=== PATIENT | female | born 1970 | race Two or more races ===

== ENCOUNTER 2021-02-20 16:34 | Emergency (ER) | payer BC, MEDICAID ==
[~2021-02-20] VITALS: Ht 154.9 cm; Wt 95.7 kg
[2021-02-20 16:41] VITALS: BP 157/76
[2021-02-20] MEDS ORDERED: KETOROLAC 30 MG/ML VIAL IM ONE (17:45)
[2021-02-20] MEDS ORDERED: ONDANSETRON 4 MG ODT PO ONE (17:45)
[2021-02-20] MEDS ORDERED: HYDROcodone/APAP 7.5/325 MG 1 TAB PO ONE (17:45)
[2021-02-20] MEDS ORDERED: PRED20TA5 PO (18:44)
[2021-02-20] MEDS ORDERED: ACET-8386 PO (18:44)
[2021-02-20] MEDS ORDERED: LID5T TP (18:44)
[2021-02-20] MEDS ORDERED: IBUP-2213 PO (18:44)
[2021-02-20 19:15] VITALS: BP 157/76
== END 2021-02-20 19:15 | disposition home or self-care (01) ==
LOC: MED 16:34
DX: S39.012A Strain of muscle, fascia and tendon of lower back, initial encounter (principal); R31.9 Hematuria, unspecified; I10 Essential (primary) hypertension; Z79.899 Other long term (current) drug therapy; X58.XXXA Exposure to other specified factors, initial encounter; Y93.89 Activity, other specified; Y92.89 Other specified places as the place of occurrence of the external cause; Y99.8 Other external cause status
CPT/HCPCS: 81002; 81025; 96372; 99283; J1885; Q0162

== ENCOUNTER 2021-04-21 16:47 | Emergency (ER) | payer SELFPAY ==
[~2021-04-21] VITALS: Ht 154.9 cm; Wt 95.3 kg
[~2021-04-21 16:47] MED LIST: ACET-8386 PO; IBUP-2213 PO; LID5T TP; PRED20TA5 PO
[2021-04-21 17:04] VITALS: BP 125/89
--- NOTE | 2021-04-21 17:30 | NUR ---
50 YO BIBS C/O PLEURITIC CHEST PAIN, COUGH, 8/10 BODY ACHES X3 WEEKS. PT REPORTS CHEST PAIN BECAME STRONGER LAST NIGHT; NON RADIATING, PATIENT IS ACTIVELY COUGHING UPON ASSESSMENT;REPORTS PRODUCTIVE COUGH WITH GREEN SPUTUM, LUNG SOUNDS CLEAR THROUGHOUT, PATIENT HAS ABCESS TO LEFT BREAST; RED AND WARM TO TOUCH. DENIES FEVER, CHILLS, N/V/D. EKG DONE; SEE CHART. A&OX4; PLACED ON MONITOR. PMH: HTN, RHUEMATOID ARTHRITIS, FIBROMYALGIA. NKDA
--- NOTE | 2021-04-21 17:49 | NUR ---
ELIZ SAMPLE COLLECTED AND GIVEN TO [employer]ANCE [employer]MI[employer] AUDITOR.
[2021-04-21] MEDS ORDERED: ACET-10509 PO (18:19)
[2021-04-21] MEDS ORDERED: IBUP-2213 PO (18:19)
[2021-04-21 18:33] LABS: ALBUMIN 3.2 g/dL (3.4-5.0); ANION GAP 10.6 (8-16); CARBON DIOXIDE 29.3 mmol/L (21-32); CREATININE 0.8 mg/dL (0.6-1.3); POTASSIUM 3.9 mmol/L (3.5-5.1); TOTAL BILIRUBIN 0.3 mg/dL (0.0-1.0)
--- NOTE | 2021-04-21 19:20 | NUR ---
REPORT RECEIVED FROM GAUTAM OLEA FOR CONTINUATION OF PATIENT CARE. AT THIS TIME.
[2021-04-21] MEDS ORDERED: KETOROLAC 60 MG/2 ML VIAL IM ONE (19:25)
--- NOTE | 2021-04-21 19:40 | NUR ---
PATIENT LAYING IN BED LOCKED IN LOWEST POSITION, HOB ELEVATED. X2 SIDERAILS UP FOR PATIENT SAFETY. PATIENT REPORTS BODY ACHES 6/10 AND CHEST DISCOMFORT WHEN COUGHING. LUNG SOUNDS CLEAR THROUGHOUT. BREATHIGN EVEN AND UNLABORED. CONNECTED TO MONITOR W VSS. NAD NOTED, WILL CONTINUE TO MONITOR.
[2021-04-21 20:01] VITALS: BP 148/93
--- NOTE | 2021-04-21 20:01 | NUR ---
Patient discharged with v/s stable. Written and verbal after care instructions given and explained. Patient alert, oriented and verbalized understanding of instructions. Ambulatory with steady gait. All questions addressed prior to discharge. ID band removed. Patient advised to follow up with PMD. Rx of ACETAMINOPHEN, IBUPROFEN given. Patient educated on indication of medication including possible reaction and side effects. Opportunity to ask questions provided and answered.
== END 2021-04-21 20:01 | disposition home or self-care (01) ==
LOC: MED 16:47
DX: U07.1 COVID-19 (principal); R05 Cough; R07.9 Chest pain, unspecified; I10 Essential (primary) hypertension; Z79.899 Other long term (current) drug therapy
CPT/HCPCS: 36415; 71045; 80053; 83880; 84484; 87426; 93005; 99285; J1885; Q0092

== ENCOUNTER 2023-05-23 16:09 | Inpatient (IN) | payer MEDICAID ==
[~2023-05-23] VITALS: Ht 154.9 cm; Wt 69.9 kg
[~2023-05-23 16:09] MED LIST changes: +ACET-10509 PO; -ACET-8386 PO; +ACET-8905 PO
[2023-05-23 16:17] VITALS: BP 143/80; PULSE 107; RESP 22; TEMP 99.7; O2SAT 98
[2023-05-23] MEDS ORDERED: KETOROLAC 30 MG/ML VIAL IVP ONE (16:45)
[2023-05-23] MEDS ORDERED: NACL 0.9% 1,000 ML IV SCH (16:45)
[2023-05-23] MEDS ORDERED: ONDANSETRON 4 MG/2 ML VIAL IVP ONE (16:45)
[2023-05-23 17:42] LABS: BASOPHILS % (AUTO) 0.3 % (0.0-2.0); HEMATOCRIT 42.6 % (36-48); HEMOGLOBIN 14.5 g/dL (12.0-16.0); LYMPHOCYTES # (AUTO) 0.9 K/uL (2.5-16.5); MEAN CORPUSCULAR HEMOGLOBIN 31 pg (27-31); MEAN CORPUSCULAR HGB CONC 34 g/dL (33-37); MEAN CORPUSCULAR VOLUME 91.6 fL (80-94); MONOCYTES # (AUTO) 0.6 K/uL (0.8-1.0); MONOCYTES % (AUTO) 6.3 % (1.7-9.3); NEUTROPHILS # (AUTO) 8.4 K/uL (1.8-7.7); NEUTROPHILS % (AUTO) 84.4 % (42.2-75.2); PLATELET COUNT (AUTO) 231 K/uL (140-450); RED BLOOD CELL COUNT(AUTO) 4.65 MIL/uL (4.20-5.40); RED CELL DISTRIBUTION WIDTH 13.6 % (11.6-13.7)
[2023-05-23 17:47] LABS: BILIRUBIN,URINE NEGATIVE (NEGATIVE); BLOOD, URINE 3+ (NEGATIVE); COLOR,URINE YELLOW (YELLOW); LEUKOCYTE ESTERASE ,URINE 2+ (NEGATIVE); NITRITE, URINE POSITIVE (NEGATIVE); PROTEIN,URINE 2+ (NEGATIVE); UGLUCOSE NEGATIVE (NEGATIVE)
[2023-05-23 17:48] LABS: APPEARANCE,URINE CLOUDY (CLEAR)
[2023-05-23 17:58] LABS: BACTERIA,URINE 10-30 (MOD) /HPF (None Seen); SQUAMOUS EPITHELIAL CELL,UR 4-10 (MOD) /LPF (0-3 (FEW)); WBC,URINE 80-100 /HPF (0-5)
[2023-05-23 18:05] LABS: ALBUMIN 3.4 g/dL (3.4-5.0); ANION GAP 10.5 (8-16); CALCIUM 9.6 mg/dL (8.5-10.1); CARBON DIOXIDE 28.8 mmol/L (21-32); CREATININE 0.9 mg/dL (0.6-1.3); POTASSIUM 4.3 mmol/L (3.5-5.1); TOTAL PROTEIN, SERUM 8.8 g/dL (6.4-8.2)
[2023-05-23] MEDS ORDERED: cefTRIAXone 1,000 MG VIAL ONE (19:11)
[2023-05-23] MEDS ORDERED: MORPHINE SULFATE 4 MG/ML SYR IVP ONE (19:25)
[2023-05-23] MEDS ORDERED: MORPHINE SULFATE 4 MG/ML SYR IVP PRN (20:50)
[2023-05-23] MEDS ORDERED: ONDANSETRON 4 MG/2 ML VIAL IVP PRN (20:50)
[2023-05-23] MEDS ORDERED: KCL 20 MEQ IN 100 mL PREMIX 200 ML IV PRN (20:50)
[2023-05-23] MEDS ORDERED: MAGNESIUM OXIDE 400 MG TAB PO PRN (20:50)
[2023-05-23] MEDS ORDERED: POTASSIUM CHLORIDE 10 MEQ TABER PO PRN (20:50)
[2023-05-23] MEDS ORDERED: HYDROcodone/APAP 5/325 MG 1 TAB TAB PO PRN (20:50)
[2023-05-23] MEDS: NACL 0.9% 1,000 ML IV SCH (21:45)
[2023-05-23 22:14] VITALS: PULSE 81
[2023-05-23 22:15] VITALS: BP 111/71; PULSE 78; RESP 18; TEMP 98; O2SAT 97
[2023-05-24] VITALS (8 sets, daily range): BP systolic 90–134; BP diastolic 61–84; PULSE 59–90; RESP 18; TEMP 97.6–98.8; O2SAT 96–100
[2023-05-24] MEDS: ACETAMINOPHEN 325 MG TAB PO PRN ×2 (03:04→11:19)
[2023-05-24 06:28] LABS: BASOPHILS % (AUTO) 0.3 % (0.0-2.0); EOSINOPHILS % (AUTO) 0.5 % (0.0-4.0); HEMATOCRIT 36.7 % (36-48); HEMOGLOBIN 12.4 g/dL (12.0-16.0); LYMPHOCYTES # (AUTO) 1.4 K/uL (2.5-16.5); LYMPHOCYTES % (AUTO) 17.4 % (20.5-51.1); MEAN CORPUSCULAR HEMOGLOBIN 31 pg (27-31); MEAN CORPUSCULAR HGB CONC 34 g/dL (33-37); MEAN CORPUSCULAR VOLUME 91.2 fL (80-94); MONOCYTES % (AUTO) 12.5 % (1.7-9.3); NEUTROPHILS # (AUTO) 5.5 K/uL (1.8-7.7); NEUTROPHILS % (AUTO) 69.3 % (42.2-75.2); PLATELET COUNT (AUTO) 217 K/uL (140-450); RED BLOOD CELL COUNT(AUTO) 4.02 MIL/uL (4.20-5.40); RED CELL DISTRIBUTION WIDTH 13.4 % (11.6-13.7); WHITE BLOOD COUNT (AUTO) 7.9 K/uL (4.8-10.8)
[2023-05-24 06:45] LABS: ANION GAP 9.6 (8-16); CALCIUM 8.7 mg/dL (8.5-10.1); CARBON DIOXIDE 27.7 mmol/L (21-32); CREATININE 0.9 mg/dL (0.6-1.3); POTASSIUM 4.3 mmol/L (3.5-5.1)
[2023-05-24] MEDS: ENOXAPARIN 40 MG/0.4 ML SYR SUBQ SCH (08:43)
[2023-05-24] MEDS: NACL 0.9% 1,000 ML IV SCH (09:02)
[2023-05-25 04:00] VITALS: BP 118/82; PULSE 72; RESP 18; TEMP 96.8; O2SAT 95
[2023-05-25] MEDS: NACL 0.9% 1,000 ML IV SCH ×2 (06:00→10:20)
[2023-05-25 06:56] LABS: BASOPHILS % (AUTO) 0.6 % (0.0-2.0); EOSINOPHILS # (AUTO) 0.1 K/uL (0-0.4); EOSINOPHILS % (AUTO) 1.5 % (0.0-4.0); HEMOGLOBIN 12.3 g/dL (12.0-16.0); LYMPHOCYTES # (AUTO) 1.8 K/uL (2.5-16.5); LYMPHOCYTES % (AUTO) 31.2 % (20.5-51.1); MEAN CORPUSCULAR HEMOGLOBIN 30 pg (27-31); MEAN CORPUSCULAR HGB CONC 33 g/dL (33-37); MEAN CORPUSCULAR VOLUME 90.8 fL (80-94); MONOCYTES # (AUTO) 0.9 K/uL (0.8-1.0); MONOCYTES % (AUTO) 15.8 % (1.7-9.3); NEUTROPHILS # (AUTO) 2.9 K/uL (1.8-7.7); NEUTROPHILS % (AUTO) 50.9 % (42.2-75.2); PLATELET COUNT (AUTO) 233 K/uL (140-450); RED BLOOD CELL COUNT(AUTO) 4.07 MIL/uL (4.20-5.40); RED CELL DISTRIBUTION WIDTH 13.3 % (11.6-13.7); WHITE BLOOD COUNT (AUTO) 5.8 K/uL (4.8-10.8)
[2023-05-25 07:07] LABS: ANION GAP 11.6 (8-16); CALCIUM 9.1 mg/dL (8.5-10.1); CARBON DIOXIDE 27.5 mmol/L (21-32); CREATININE 0.8 mg/dL (0.6-1.3); POTASSIUM 4.1 mmol/L (3.5-5.1)
[2023-05-25 08:00] VITALS: PULSE 69; RESP 18; O2SAT 96
[2023-05-25] MEDS ORDERED: CIPR500T4 PO (08:49)
[2023-05-25] MEDS: ENOXAPARIN 40 MG/0.4 ML SYR SUBQ SCH (09:10)
[2023-05-25 10:01] VITALS: BP 118/82; PULSE 69; RESP 18; TEMP 96.8
== END 2023-05-25 11:50 | disposition home or self-care (01) | DRG 463 ==
LOC: MED 16:09 → MTU 20:52
PROVIDERS: ADMIT Internal Medicine; ATTEND Internal Medicine
DX: N13.6 Pyonephrosis (principal); E87.1 Hypo-osmolality and hyponatremia; R65.10 Systemic inflammatory response syndrome (SIRS) of non-infectious origin without acute organ dysfunction; I10 Essential (primary) hypertension; Z79.891 Long term (current) use of opiate analgesic; Z79.1 Long term (current) use of non-steroidal anti-inflammatories (NSAID); Z79.899 Other long term (current) drug therapy
CPT/HCPCS: 36415; 80048; 80053; 81001; 83690; 85025; 87081; 87086; 96361; 96365; 96375; 99285; J0696; J1650; J1885; J2405; J7060

== ENCOUNTER 2023-07-29 12:58 | Emergency (ER) | payer MEDICAID ==
[~2023-07-29] VITALS: Ht 154.9 cm; Wt 83.9 kg
[~2023-07-29 12:58] MED LIST changes: +CIPR500T4 PO
[2023-07-29 13:29] VITALS: BP 140/79; PULSE 78; RESP 18; TEMP 98.2; O2SAT 99
[2023-07-29 14:24] LABS: FLU A ANTIGEN negative (NEGATIVE); FLU B ANTIGEN NEGATIVE (NEGATIVE)
[2023-07-29] MEDS ORDERED: ACET-10509 PO ×2 (14:48→15:12)
[2023-07-29] MEDS ORDERED: IBUP-1842 PO ×2 (14:48→15:12)
[2023-07-29] MEDS ORDERED: BENZ150C2 PO ×2 (14:48→15:12)
[2023-07-29] MEDS ORDERED: BENZ-300 PO ×2 (14:48→15:12)
[2023-07-29] MEDS ORDERED: KETOROLAC 30 MG/ML VIAL IM ONE (14:50)
[2023-07-29 15:15] VITALS: BP 132/79; PULSE 77; RESP 18; TEMP 98; O2SAT 99
== END 2023-07-29 15:15 | disposition home or self-care (01) ==
LOC: MED 12:58
DX: J06.9 Acute upper respiratory infection, unspecified (principal); Z20.822 Contact with and (suspected) exposure to COVID-19; I10 Essential (primary) hypertension; E11.9 Type 2 diabetes mellitus without complications; Z79.4 Long term (current) use of insulin; Z79.899 Other long term (current) drug therapy
CPT/HCPCS: 71045; 87426; 87804; 96372; 99284; J1885

== ENCOUNTER 2023-11-27 12:17 | Emergency (ER) | payer MEDICAID ==
[~2023-11-27] VITALS: Ht 154.9 cm; Wt 81.6 kg
[~2023-11-27 12:17] MED LIST changes: +BENZ-300 PO; +BENZ150C2 PO; +IBUP-1842 PO
[2023-11-27 12:39] VITALS: BP 144/93; PULSE 68; RESP 16; TEMP 98.2; O2SAT 97
[2023-11-27] MEDS ORDERED: IBUP-2213 PO (13:17)
[2023-11-27] MEDS ORDERED: METH-1681 PO (13:17)
[2023-11-27] MEDS: IBUPROFEN 600 MG TAB PO ONE (13:18)
[2023-11-27] MEDS ORDERED: GABA300C PO (13:20)
== END 2023-11-27 13:42 | disposition home or self-care (01) ==
LOC: MED 12:17
DX: M79.2 Neuralgia and neuritis, unspecified (principal); M54.50 Low back pain, unspecified; G89.29 Other chronic pain; R20.2 Paresthesia of skin; E11.9 Type 2 diabetes mellitus without complications; I10 Essential (primary) hypertension; Z79.1 Long term (current) use of non-steroidal anti-inflammatories (NSAID); Z79.899 Other long term (current) drug therapy
CPT/HCPCS: 99283

== ENCOUNTER 2024-02-03 17:53 | Emergency (ER) | payer MEDICAID ==
[~2024-02-03] VITALS: Ht 154.9 cm; Wt 81.6 kg
[~2024-02-03 17:53] MED LIST changes: -BENZ150C2 PO; +BENZ150C7 PO; +GABA300C PO
[2024-02-03 17:58] VITALS: BP 146/95; PULSE 80; RESP 18; TEMP 97.5; O2SAT 97
[2024-02-03 18:10] VITALS: O2SAT 97
[2024-02-03] MEDS ORDERED: IBUP-2213 PO (19:01)
[2024-02-03 19:36] VITALS: BP 132/95; PULSE 80; RESP 18; TEMP 97.5; O2SAT 97
== END 2024-02-03 19:36 | disposition home or self-care (01) ==
LOC: MED 17:53
DX: S93.402A Sprain of unspecified ligament of left ankle, initial encounter (principal); E11.9 Type 2 diabetes mellitus without complications; I10 Essential (primary) hypertension; Z79.1 Long term (current) use of non-steroidal anti-inflammatories (NSAID); Z79.2 Long term (current) use of antibiotics; Z79.899 Other long term (current) drug therapy; X50.1XXA Overexertion from prolonged static or awkward postures, initial encounter; Y93.89 Activity, other specified; Y92.830 Public park as the place of occurrence of the external cause; Y99.8 Other external cause status
CPT/HCPCS: 73610; 99283; Q0092

== ENCOUNTER 2024-02-28 08:14 | Emergency (ER) | payer MEDICAID ==
[~2024-02-28] VITALS: Ht 154.9 cm; Wt 81.6 kg
[2024-02-28 08:33] VITALS: BP 141/96; PULSE 64; RESP 20; TEMP 98.7; O2SAT 99
[2024-02-28 10:20] VITALS: BP 141/96; PULSE 64; RESP 20; TEMP 98.7; O2SAT 99
== END 2024-02-28 10:20 | disposition home or self-care (01) ==
LOC: MED 08:14
DX: S93.402A Sprain of unspecified ligament of left ankle, initial encounter (principal); E11.9 Type 2 diabetes mellitus without complications; I10 Essential (primary) hypertension; Z79.1 Long term (current) use of non-steroidal anti-inflammatories (NSAID); Z79.2 Long term (current) use of antibiotics; Z79.899 Other long term (current) drug therapy; X58.XXXA Exposure to other specified factors, initial encounter; Y93.89 Activity, other specified; Y92.89 Other specified places as the place of occurrence of the external cause; Y99.8 Other external cause status
CPT/HCPCS: 29515; 73610; 99283

== ENCOUNTER 2024-05-19 15:53 | Emergency (ER) | payer MEDICAID ==
[~2024-05-19] VITALS: Ht 154.9 cm; Wt 79.8 kg
[~2024-05-19 15:53] MED LIST changes: -ACET-10509 PO; +ACET500T99 PO
[2024-05-19 16:50] VITALS: BP 142/99; PULSE 70; RESP 18; TEMP 98; O2SAT 100
[2024-05-19] MEDS ORDERED: IBUP-2213 PO (18:07)
[2024-05-19] MEDS ORDERED: KETOROLAC 30 MG/ML VIAL ONE (19:35)
[2024-05-19] MEDS: KETOROLAC 30 MG/ML VIAL IM ONE ×2 (19:46→19:51)
== END 2024-05-19 19:54 | disposition home or self-care (01) ==
LOC: MED 15:53
DX: M25.562 Pain in left knee (principal); M25.552 Pain in left hip; E11.9 Type 2 diabetes mellitus without complications; I10 Essential (primary) hypertension; Z79.899 Other long term (current) drug therapy; M06.9 Rheumatoid arthritis, unspecified; W18.39XA Other fall on same level, initial encounter; Y92.89 Other specified places as the place of occurrence of the external cause; Y93.89 Activity, other specified; Y99.8 Other external cause status
CPT/HCPCS: 73502; 73562; 96372; 99284; J1885